=== PATIENT | male | born 1965 | race Caucasian/White ===

== ENCOUNTER 2017-07-08 06:53 | Day surgery (SDC) | payer OTHER ==
[2017-07-07 12:43] VITALS: BMI 30.9
--- NOTE | 2017-07-08 08:58 | HP ---
Satellite H - Chief Complaint Chief Complaint: right shoulder pain - Past Medical History Allergies/Adverse Reactions: Allergies Allergy/AdvReac Type Severity Reaction Status Date / Time No Known Drug Allergies Allergy Verified 07/07/17 12:43 - Current Medications Current Medications: Home Medications Medication Instructions Recorded Amlodipine Bes/Olmesartan Med 1 each PO DAILY 11/07/13 [Liana 10-20 mg Tablet] Sitagliptin Phos/Metformin HCl 1 tab PO BID 11/07/13 [Janumet 50-500 mg Tablet] Famotidine [Pepcid -] 40 mg PO DAILY 05/04/17 Hydrocodone/Acetaminophen [Notus 1 each PO Q6H PRN #40 tablet MDD 4 07/08/17 5-325 Tablet] Satellite Physical Exam - Physical Examination Vital Signs: Vital Signs Period Temp Pulse Resp BP Sys/Stephens Pulse Ox Last 24 Hr 98.5 F-98.5 F 93-93 18-18 150-150/79-79 98 General Appearance: Well Nourished, Well Developed, Alert & Oriented x3 ENT: Clear Lung: Normal air movement Heart: Regular rate & rhythm Extremities: Other (right shoulder- + ttp ,decr rom, + neer, + french, + empty can, nvi MRi + rct) Neurological: Intact, Alert, Oriented Satellite Impression/Plan - Impression/Plan Impression: right shoulder rct Operative Procedure: right shoulder arthroscopy with SAD and possible RCR Date to be Performed: 07/08/17
[2017-07-08] MEDS ORDERED: ceFAZolin SODIUM 1 GM VIAL IVPB ONE (10:05)
[2017-07-08] MEDS ORDERED: ONDANSETRON 4 MG/2 ML VIAL IVPUSH PRN (10:35)
[2017-07-08] MEDS ORDERED: oxyCODONE HCL 5 MG TABLET PO PRN ×2 (10:35)
[2017-07-08] MEDS ORDERED: LACTATED RINGERS SOLUTION 1,000 ML IV SCH (10:45)
--- NOTE | 2017-07-08 11:11 | OP ---
Operative Note - Note: Operative Date: 07/08/17 Pre-Operative Diagnosis: right shoulder impingement Operation: right shoulder arthroscopy, subacromial decompression Post-Operative Diagnosis: Same as Pre-op Surgeon: Bruce Browning Director Inpatient Headache Program: Anderson Onofre (Giles, second ass't) Anesthesiologist/BOTTOM BLEACHER: Nino Marcial Anesthesia: General, Local Specimens Removed: shavings Estimated Blood Loss (mls): 10 Drains, Volume Out (mls): 0 Blood Volume Replaced (mls): 0 Fluid Volume Replaced (mls): 500 Operative Report Dictated: Yes
[2017-07-08 12:16] VITALS: TEMP 98.4
--- NOTE | 2017-07-08 13:52 | OP ---
DATE OF OPERATION: 07/08/2017 PREOPERATIVE DIAGNOSIS: Right shoulder impingement syndrome, possible rotator cuff tear. POSTOPERATIVE DIAGNOSIS: Right shoulder impingement syndrome. SURGEON: Bruce Browning MD. HELMET HAT BRIM CUTTER: CK Gold SECOND HELMET HAT BRIM CUTTER: Elmer Skaggs MD ANESTHESIOLOGISTS: Leon Kelly CRNA, Nino Marcial MD ANESTHESIA: Right interscalene block with LMA anesthesia. DRAINS: None. COMPLICATIONS: None. BLOOD LOSS: Minimal. BLOOD GIVEN: None. FLUID REPLACEMENT: 500 mL. DESCRIPTION OF PROCEDURE: This patient is a 51-year-old male with a preoperative diagnosis of right shoulder pain and subacromial impingement and a possible rotator cuff tear. After understanding the potential risks, complications, alternatives, benefits to surgery versus nonsurgical treatment, the patient elected to undergo this procedure. Patient had a right interscalene block. IV Ancef 1 g was given. LMA anesthesia was induced. He was placed into the beach chair position with ample padding throughout. The right upper extremity was prepped and draped in sterile fashion. The bony landmarks were marked out with a marking pen. Posterior portal was established and a diagnostic glenohumeral arthroscopy was performed. The joint looked good. There was no arthritis. The biceps tendon and labral anchor looked good. The undersurface of the rotator cuff looked perfect. The area was washed out and the arthroscope introduced into the subacromial space. Here there was a tremendous amount of inflammatory bursitis. Lateral portal was established with a spinal needle under direct visualization, the ArthroCare wand used to do a soft tissue bursectomy. After this extensive debridement, we looked at the top surface of the rotator cuff, moved the arm through a full range of motion, and there was no top surface rotator cuff tear either. The soft tissue bursectomy did reveal a very large subacromial spur. The clavicle looked fine, and the 5.5-mm oval bur was used to do the bony decompression. It was fine tuned in reverse and then the shaver used to fine tune it further and remove all debris that we reestablished a large space. The undersurface of the acromion was now flat. The top surface of the rotator cuff was directly visualized, had a full range of motion. There was no point of impingement. The area was copiously irrigated and washed out. All excess saline and debris was removed. The arthroscopy portals were closed with 3-0 nylon suture. The area was then washed and dried, covered with Aquacel dressing. The patient was placed into a shoulder sling. Total operative time was about 30 minutes. There were no complications during the case. The patient tolerated the procedure quite well and was brought to the ambulatory recovery room in stable condition. Goldy DE JESUS/[id number]
[2017-07-08 14:24] VITALS: PULSE 90
[2017-07-08 14:39] VITALS: BP 137/84
--- NOTE | 2017-07-10 15:36 | PATH ---
Surgical Pathology Report Patient Name: STUART MCBRIDE Med. Rec. #: [id number] /Age/Gender: 1965 (Age: 51) / M Account: [id number] Location: [facility] Taken: 07/08/2017 Received: 07/08/2017 Reported: 07/10/2017 Physicians: Bruce Browning M.D. Specimen(s) Received RIGHT SHOULDER SHAVINGS Clinical History Right shoulder tear Final Diagnosis SHOULDER SHAVINGS, RIGHT, ARTHROSCOPY: FRAGMENTS OF BENIGN CARTILAGE, DENSE FIBROCONNECTIVE TISSUE, ADIPOSE TISSUE, SKELETAL MUSCLE, AND BONE. Electronically Signed Skyla Moon M.D. Gross Description Received in formalin, labeled "right shoulder shavings," is a 4.5 x 3.5 x 0.4 cm. aggregate of sales-yellow soft tissue fragments. A risk control representative portion is submitted in one cassette. /07/08/2017 saudi07/08/2017
== END 2017-07-08 14:00 | disposition home or self-care (01) ==
LOC: JASU-SURG 06:53
PROVIDERS: ATTEND Orthopaedic Surgery
PROC: 0RBJ4ZZ Excision of Right Shoulder Joint, Percutaneous Endoscopic Approach (ICD-10-PCS; principal; 2017-07-08 09:00)
DX: M75.41 Impingement syndrome of right shoulder (principal); M75.51 Bursitis of right shoulder
CPT/HCPCS: 82962; 88304-TC; 94760